=== PATIENT | male | born 1990 | race Caucasian/White ===

== ENCOUNTER 2021-07-05 11:13 | Emergency (ER) | payer OTHER ==
--- NOTE | 2021-07-05 12:08 | CR ---
[id number] RAD/RAD Ankle Left 3V Min EXAM: RAD Ankle Left 3V Min INDICATION: TRAUMA COMPARISON: None. DISCUSSION: A thin linear ossicle projecting between the lateral process of the talus and the distal fibula is most consistent with an age-indeterminate avulsion fracture. Diffuse soft tissue swelling is most pronounced laterally. Joint spaces are maintained. IMPRESSION: 1. Small age-indeterminate avulsion fracture lateral talus versus distal fibula. Jarocho Otero MD 07/05/21 [id number] Thank you for allowing us to participate in the care of your patient.
[2021-07-05] MEDS ORDERED: Ketorolac 30 MG/ML SDV IM ONE (12:14)
--- NOTE | 2021-07-05 12:19 | EDM.PDOC ---
ED HPI GENERAL MEDICAL PROBLEM - General Chief Complaint: Lower Extremity Injury/Pain Stated Complaint: LEFT ANKLE INJURY Time Seen by Provider: 07/05/21 11:25 Source of Information: Reports: Patient History Limitations: Reports: No Limitations - History of Present Illness INITIAL COMMENTS - FREE TEXT/NARRATIVE: Ray is a 31 year old male who presents with complaints of left ankle pain. Tripped in a hole yesterday, has had considerable left ankle swelling and pain since that time. Initially thought was sprain so "figured it would be a little better this am but still having trouble bearing weight". Did ice it twice last evening. Noted more bruising this am. Took Advil last night but was unable to sleep due to the pain. Onset: Gradual Duration: Hour(s):, Constant Location: Reports: Lower Extremity, Left Quality: Reports: Sharp, Throbbing Severity: Moderate Improves with: Reports: Rest Worsens with: Reports: Movement Context: Reports: Trauma Associated Symptoms: Reports: No Other Symptoms Treatments [employer]: Reports: NSAIDS Left Ankle Pain Score (Numeric/FACES): 4 - Related Data Allergies Allergy/AdvReac Type Severity Reaction Status Date / Time diphenhydramine Allergy Cannot Verified 07/05/21 12:08 [From Benadryl] Remember Home Meds: Home Meds Ketorolac [Toradol] 10 mg PO Q6H PRN #20 tab 07/05/21 [Rx] Past Medical History - Past Health History Medical/Surgical History: Denies Medical/Surgical History Social & Family History - Tobacco Use Tobacco Use Status *Q: Unknown Ever Used Tobacco Review of Systems - Review of Systems Review Of Systems: See Below Constitutional: Reports: No Symptoms Eyes: Reports: No Symptoms Ears: Reports: No Symptoms Nose: Reports: No Symptoms Mouth/Throat: Reports: No Symptoms Respiratory: Reports: No Symptoms Cardiovascular: Reports: No Symptoms GI/Abdominal: Reports: No Symptoms Musculoskeletal: Reports: Joint Pain, Joint Swelling Skin: Reports: Bruising Neurological: Reports: No Symptoms ED EXAM, GENERAL - Physical Exam Exam: See Below Exam Limited By: No Limitations General Appearance: Alert, WD/WN, No Apparent Distress Extremities: Joint Swelling, Limited Range of Motion (pain with inversion, eversion of ankle.), Other (left ankle noted to have significant swelling to the left lateral malleolar region. Mild swelling to the medial malleolar area. ) Neurological: Alert, Oriented Skin Exam: Warm, Dry, Ecchymosis (lateral left malleolar region) Course - Vital Signs Last Recorded V/S: Last Vital Signs Temp 98.3 F 07/05/21 11:18 Pulse 74 07/05/21 11:18 Resp 16 07/05/21 11:18 BP 123/80 07/05/21 11:18 Pulse Ox 100 07/05/21 11:18 - Orders/Labs/Meds Meds: Medications Discontinued Medications Generic Name Dose Route Start Last Admin Trade Name Freq PRN Reason Stop Dose Admin Ketorolac Tromethamine 30 mg 07/05/21 12:14 07/05/21 12:28 Ketorolac 30 Mg/Ml Sdv IM 07/05/21 12:15 30 mg ONETIME ONE Administration - Re-Assessments/Exams Free Text/Narrative Re-Assessment/Exam: 07/05/21 Xray shows small avulsion fracture to either lateral talus versus distal fibula. Cam boot applied to left ankle. Instructions discussed with patient. Departure - Departure Time of Disposition: 12:17 Disposition: Home, Self-Care 01 Condition: Good Clinical Impression: Avulsion fracture of ankle - Discharge Information *PRESCRIPTION DRUG MONITORING PROGRAM REVIEWED*: No *COPY OF PRESCRIPTION DRUG MONITORING REPORT IN PATIENT MICK: No Prescriptions: Ketorolac [Toradol] 10 mg PO Q6H PRN #20 tab PRN Reason: Pain Instructions: Ankle Fracture, [id number] Referrals: PCP,None [Primary Care Provider] - Forms: ED Department Discharge Additional Instructions: 1. Continue to elevate leg today to reduce swelling 2. Ice to ankle frequently yet today 3. Weight bear as tolerated with brace 4. Keep splint on at all times except with bathing 5. Follow up with primary care provider in 2 weeks for recheck/xray 6. Toradol 10 mg every 6 hours as needed for pain and swelling 7. Call PCP with any questions or concerns. Sepsis Event Note (ED) - Focused Exam Vital Signs: Vital Signs Temp Pulse Resp BP Pulse Ox 07/05/21 11:18 98.3 F 74 16 123/80 100
[2021-07-05 12:39] VITALS: BP 123/80; PULSE 74
== END 2021-07-05 12:34 | disposition home or self-care (01) ==
LOC: VM.ED 11:13
DX: S82.62XA Displaced fracture of lateral malleolus of left fibula, initial encounter for closed fracture (principal); Z88.8 Allergy status to other drugs, medicaments and biological substances; W18.42XA Slipping, tripping and stumbling without falling due to stepping into hole or opening, initial encounter
CPT/HCPCS: 73610-LT; 96372; 99283-25; J1885